=== PATIENT | female | born 1945 | race Caucasian/White ===

== ENCOUNTER 2021-10-02 12:56 | Emergency (ER) | payer OTHER ==
[2021-10-02 13:37] LABS: HEMOGLOBIN 13.9 gm/dl (12.3-15.3); RED BLOOD COUNT 4.29 M/UL (4.00-5.10); WHITE BLOOD COUNT 7.7 K/UL (4.5-11.0)
[2021-10-02 15:36] LABS: BUN/CREATININE RATIO 20 (0-10)
== END 2021-10-02 16:45 | disposition home or self-care (01) ==
LOC: ER1 12:56
PROVIDERS: Nurse Practitioner
DX: R07.89 Other chest pain (principal); Z20.822 Contact with and (suspected) exposure to COVID-19; E78.5 Hyperlipidemia, unspecified; I10 Essential (primary) hypertension; Z90.49 Acquired absence of other specified parts of digestive tract
CPT/HCPCS: 0240U; 71045; 80048; 81001; 82550; 82553; 83874; 84484; 84702; 85025; 93005; 99285